=== PATIENT | male | born 1995 | race Two or more races ===

== ENCOUNTER 2022-08-22 23:41 | Emergency (ER) | payer OTHER ==
[~2022-08-22] VITALS: Ht 172.7 cm; Wt 98.2 kg
[2022-08-23 01:00] VITALS: BP 140/82
[2022-08-23] MEDS ORDERED: IBUP-1456 PO (01:55)
[2022-08-23] MEDS ORDERED: KETOROLAC TROMETH 30 MG/ML 1ML VIAL IM ONE (02:00)
== END 2022-08-23 03:06 | disposition home or self-care (01) ==
LOC: ER 23:41
DX: M54.50 Low back pain, unspecified (principal); Z79.1 Long term (current) use of non-steroidal anti-inflammatories (NSAID)
CPT/HCPCS: 96372; 99283; J1885